=== PATIENT | female | born 1990 | race Hispanic/Latino ===

== ENCOUNTER 2024-03-03 12:03 | Emergency (ER) | payer OTHER ==
[~2024-03-03] VITALS: Ht 152.4 cm; Wt 72.5 kg
[2024-03-03] MEDS ORDERED: ACETAMINOPHEN 325 MG/TAB PO PRN (12:40)
[2024-03-03] MEDS ORDERED: ACETAMINOPHEN 325 MG/TAB PO ONE (13:00)
[2024-03-03] MEDS ORDERED: DEXAMETHASONE SOD. PHOSPHATE 10 MG/ML VIAL IM ONE (13:30)
[2024-03-03] MEDS ORDERED: ZYRTEC10 MG PO (13:59)
[2024-03-03 14:04] VITALS: BP 150/100
== END 2024-03-03 14:10 | disposition home or self-care (01) | DRG 866 ==
LOC: ED 12:03
DX: B34.9 Viral infection, unspecified (principal); J45.909 Unspecified asthma, uncomplicated; Z20.822 Contact with and (suspected) exposure to COVID-19